=== PATIENT | female | born 1955 | race Caucasian/White ===

== ENCOUNTER 2019-05-03 08:54 | Outpatient (CLI) | payer MEDICARE ==
[~2019-05-03 08:54] MED LIST: ASPI-1009 PO; COU1T PO; CYCL-1 PO; ERGO500014 PO; ONDA8TAB9 PO; ZOLP5TAB8 PO; [UNRECOGNIZED DRUG - CODE] SUBCUT
== END 2019-05-03 23:59 | disposition home or self-care (01) ==
LOC: RAD 08:54
PROVIDERS: ATTEND Student in an Organized Health Care Education/Training Program
DX: M95.8 Other specified acquired deformities of musculoskeletal system (principal)
CPT/HCPCS: 76881